=== PATIENT | female | born 1995 | race Caucasian/White ===

== ENCOUNTER 2017-01-04 08:28 | Inpatient (IN) | payer BC, MEDICAID ==
[~2017-01-04] VITALS: Ht 160 cm; Wt 116.0 kg
--- NOTE | ~2017-01-04 | OR ---
PATIENT'S NAME: SHANAE SELLERS [facility] AGE: 21 Y [address] ROOM: [place] [address] LOCATION: GOBS ADMIT DATE: 01/04/2017 OR/Procedure Report DISCHARGE DATE: FAMILY PHYSICIAN: Maira Luisa Beasley APRN ATTENDING PHYSICIAN: Jefe Vázquez SURGEON: Jefe Vázquez MD GRIPPER MACHINE OPERATOR: DATE OF PROCEDURE: 01/04/2017 PREOPERATIVE DIAGNOSES: 1. Term intrauterine at early term at 37 weeks 4 days. 2. Epidural anesthesia. POSTOPERATIVE DIAGNOSES: 1. Term intrauterine at early term at 37 weeks 4 days. 2. Epidural anesthesia. 3. Delivery of viable female infant, weighing 6 pounds 6 ounces with Apgars of 7 and 9 at 1 and 5 minutes respectively. 4. Bilateral periurethral tears. DESCRIPTION OF PROCEDURE: This 21-year-old primi with an EDC of 01/21, [facility] of contractions. She is here with her significant other and the father of the baby. She has had her care in [place], [place]. She was rosey every 5-7 minutes with 3 cm upon presentation. When I saw her, she was 4 cm, 90% effaced, -3 station. She subsequently progressed well at 2020 hours and she was 9 cm and 100% effaced. She subsequently progressed to complete without difficulty. She did have some early decels at times, but had pretty good recovery. She had unremarkable second stage of labor and was able to very effectively push. On 01/04/2017 at 2140, the patient delivered a viable female infant. Head was delivered from an OA presentation and rotated to the maternal right. The shoulders were delivered and the remainder of the infant was delivered without difficulty without evidence of shoulder dystocia. Baby cord was double clamped and was cut by the father and placed on maternal abdomen. Baby had cry with stimulation and has really done well until this point. Placenta then delivered intact with three vessel cord. This was inspected closely and had no missing cotyledons. Estimated blood loss was 200 mL. Cervix was inspected and found to be intact without focal laceration. There were bilateral periurethral tears which were minimally bleeding, thus I elected to repair. There were no perineal lacerations. The uterus was firm at the time of me leaving the room and the bleeding was pretty normal at this point. Both mom and doing well at this time. PATIENT'S NAME: SHANAE SELLERS [facility] AGE: 21 Y [address] ROOM: [address] [address] LOCATION: [facility] ADMIT DATE: 01/04/2017 OR/Procedure Report DISCHARGE DATE: FAMILY PHYSICIAN: Maria Luisa Beasley APRN ATTENDING PHYSICIAN: Jefe Vázquez JEFE VÁZQUEZ MD TAB/modl /[id number] d: 01/05/17 0148 t: 01/13/17 0623, OPERATIVE SUMMARY
[2017-01-04] MEDS ORDERED: PRENATAL 1+1)(P1 TAB PO (09:25)
[2017-01-04 11:37] LABS: BASOPHIL % 0.3 %; EOSINOPHIL % 0.2 %; HEMATOCRIT 36.1 % (33.0-46.0); HEMOGLOBIN 12.6 g/dL (11.0-15.0); IMMATURE GRANULOCYTE # 0.1 K/uL (0.0-0.3); IMMATURE GRANULOCYTE % 0.6 %; LYMPHOCYTE # 1.7 K/uL (0.8-4.0); LYMPHOCYTE % 11.5 %; MCH 30.9 pg (27.0-34.0); MCHC 34.9 gm/dL (32.0-36.5); MCV 88.5 fl (83.0-98.0); MONOCYTE # 0.8 K/uL (0.0-1.0); MPV 10.6 fl (9.4-12.4); NEUTROPHIL # (ANC) 12.4 K/uL (1.8-7.8); NEUTROPHIL % 82.4 %; NRBC % 0 /100WBC (0-0.00); PLATELET COUNT 236 K/uL (150-450); RBC 4.08 M/uL (3.50-5.00); RDW-CV 14.9 % (11.9-14.6); WBC 15.1 K/uL (4.0-11.0)
[2017-01-04 13:35] LABS: BILIRUBIN URINE NEGATIVE (NEGATIVE); BLOOD URINE 250 /UL (NEGATIVE); GLUCOSE URINE NEGATIVE (NEGATIVE); KETONE URINE 5 mg/dL (NEGATIVE); LEUKOCYTES URINE 100 /UL (NEGATIVE); NITRITE URINE NEGATIVE (NEGATIVE); PROTEIN URINE 30 mg/dL (NEGATIVE); TURBIDITY URINE 2+ (CLEAR); UROBILINOGEN URINE NORMAL (NORMAL)
[2017-01-04 13:36] LABS: COLOR URINE OTHER (YELLOW)
[2017-01-04 13:46] LABS: BACTERIA URINE RARE (NEGATIVE); EPITHELIAL URINE RARE #/HPF (NEGATIVE); RBC URINE 20-50 #/HPF (NEGATIVE)
[2017-01-05 06:34] LABS: BASOPHIL % 0.2 %; EOSINOPHIL # 0.1 K/uL (0.0-0.5); EOSINOPHIL % 0.4 %; HEMATOCRIT 31.6 % (33.0-46.0); HEMOGLOBIN 10.5 g/dL (11.0-15.0); IMMATURE GRANULOCYTE # 0.1 K/uL (0.0-0.3); IMMATURE GRANULOCYTE % 0.6 %; LYMPHOCYTE # 2.2 K/uL (0.8-4.0); LYMPHOCYTE % 15.5 %; MCHC 33.2 gm/dL (32.0-36.5); MCV 90.3 fl (83.0-98.0); MONOCYTE % 6.9 %; MPV 10.8 fl (9.4-12.4); NEUTROPHIL # (ANC) 10.7 K/uL (1.8-7.8); NEUTROPHIL % 76.4 %; NRBC % 0 /100WBC (0-0.00); PLATELET COUNT 196 K/uL (150-450); RDW-CV 15.3 % (11.9-14.6)
--- NOTE | 2017-01-06 04:51 | NUR ---
VSS. BPS 130S-140S/70S. FUNDUS FIRM, EVEN, SMALL FLOW. LAST HAD MOTRIN AT 1920. CERT AND PATERNITY IN ROOM, NEED RADHA TO SIGN WITH THEM. NEEDS A LOT OF REINFORCEMENT WITH .
[2017-01-06] MEDS ORDERED: MOTRIN800 MG PO (09:04)
--- NOTE | 2017-01-06 12:54 | NUR ---
Met with patient and FOB at bedside today. Introduced myself and explained my role with the CM department. Mom plans to discharge today and go back to [place]. She states she has all the necessary items for baby at her home there. She is already connected with the [facility] clinic. I informed her that she only has 30 days to add baby to Medicaid and encouraged her to call them early next week to get baby added. I also discussed signs and symptoms of post depression with her and provided her with the handout to refer to. No other needs noted at this time.
== END 2017-01-06 15:15 | disposition disaster alternative care site (69) | DRG 775 ==
LOC: GOBS 08:28 → GOBM 08:28 → GOBS 20:26
PROVIDERS: ADMIT Family Medicine
DX: O71.82 Other specified trauma to perineum and vulva (principal); Z37.0 Single live birth; Z3A.37 37 weeks gestation of pregnancy
CPT/HCPCS: J2001; J2590; J7120